=== PATIENT | female | born 2005 | race Asian ===

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

== ENCOUNTER 2024-08-21 13:13 | Emergency (ER) | payer OTHER, SELFPAY ==
[2024-08-21 13:14] VITALS: BP 115/83; PULSE 94; RESP 16; TEMP 36.7; O2SAT 97; BMI 30.9
--- NOTE | 2024-08-21 13:19 | EX.ED.DYSGE1 ---
HPI History of Present Illness Chief Complaint: Allergic Reaction Detail of Chief Complaint: Allergic reaction Informant: patient Narrative Narrative: Patient presents to the emergency department complaint of an allergic reaction. Patient states that she ate a shrimp which she knew she was mildly allergic to. She describes about an hour ago. She complains of redness and swelling to her face. She denies lip or tongue swelling or difficulty breathing. I was called to triage to see the patient as we did not have any rooms available given the volume in the emergency department. PFSH PFSH Home Medications ?Medication ?Instructions ?Recorded ?Last Taken ?Type hydrocodone-acetaminophen 5-325mg 1 tab PO Q6H PRN PRN Pain 3 days 05/05/23 Unknown Rx 5mg-325mg #10 TABLETS epinephrine 0.3 mg/0.3 mL 0.3 mg (0.3 mL) IM Q10M PRN PRN 08/21/24 Unknown Rx injection, auto-injector (EpiPen) anaphylaxis #2 ea prednisone 20 mg tablet 20 mg PO BID #6 tabs 08/21/24 Unknown Rx Allergy/AdvReac Type Severity Reaction Status Date / Time shrimp Allergy Severe Anaphylaxis Verified 08/21/24 13:20 Social History Smoking Status: Never smoker ROS ROS ED Review of Systems ROS Unobtainable: other Constitutional Constitutional ED: Reports lethargy; Denies chills, fever(s), sweats or weight loss Eyes Eyes: Denies blurry vision, change in vision or diplopia ENT ENT ED: Denies rhinorrhea or sore throat Cardiovascular Cardiovascular: Denies chest pain, orthopnea or racing heartbeat Respiratory/Chest Respiratory/Chest: Denies cough, dyspnea, dyspnea on exertion, orthopnea or sputum Gastrointestinal Gastrointestinal: Denies abdominal pain, diarrhea, nausea or vomiting Genitourinary Genitourinary ED: Denies dysuria, hematuria or urinary frequency Musculoskeletal Musculoskeletal: Denies arthralgias, back pain, myalgias or neck pain Integumentary Reports other Details: Facial redness and hives ; Denies abscess, Abrasions or rash Neurologic Neurologic: Denies headache(s) or weakness Psychiatric Psychiatric: Denies anxiety, depression or suicidal thoughts Endocrine Endocrinology: Denies polydipsia, polyphagia or polyuria Hematologic/Lymphatic Hematologic/Lymphatic: Denies easy bleeding, easy bruising or lymphadenopathy Allergic/Immunologic Allergic/Immunologic ED: Denies mouth swelling, tongue swelling or urticaria EXAM Physical Exam Const Vital Signs: 08/21/24 13:14 08/21/24 13:44 08/21/24 14:02 Temperature 98.1 F Temperature Source Temporal Pulse Rate 94 70 69 Respiratory Rate 16 18 18 Blood Pressure 115/83 H 120/87 H 120/87 H Blood Pressure Mean 93 98 98 Pulse Ox 97 98 98 Oxygen Delivery Method Room Air Room Air Room Air Positive well nourished and well developed General Appearance ED: well developed and NAD HEENT Reports TM's clear and moist mucous membranes normocephalic and atraumatic; Negative for trauma or tenderness Tympanic Membrane ED: Yes TM's clear Eyes PERRL and EOMs intact bilaterally Eyes Narrative: Patient with flushing of her face. No angioedema noted of the lips or the tongue or oropharynx. General Eye ED: Negative for pale conjunctiva or scleral icterus Neck no lymphadenopathy, supple and no JVD General: Negative for tenderness Chest Wall inspection of chest normal and palpation of chest normal Chest: Negative for tenderness Resp normal respiratory effort and clear to auscultation bilaterally Effort and Inspection: Negative for respiratory distress or pain with movement Auscultation: Negative for rhonchi, wheezes or diminished lung sounds Cardio regular rate, regular rhythm, S1 normal heart sound, S2 normal heart sound and no murmurs Peripheral Pulses: pulses 2+ throughout GI normal to inspection, nondistended, normoactive bowel sounds, soft to palpation, non-tender, non-distended and no masses Back/Spine no CVA tenderness and no thoracic nor lumbar tenderness Extremity normal to inspection General Extremety ED: Negative for edema General Extremity: Negative for edema Neuro oriented x3, CN's II-XII intact bilaterally, no sensory deficits noted and gait normal Sensorium / Orientation: awake, alert, oriented to person, oriented to place and oriented to time Motor Exam: strength 5/5 throughout and strength abnormal Psych mental status grossly normal Skin no rashes or lesions noted and no wounds Skin Narrative: Patient with urticaria involving her face. MDM MDM MDM Narrative Medical decision making narrative: Patient presents with allergic reaction to shrimp. Patient not having any respiratory difficulty or angioedema at this time. Will establish an IV and will treat with Solu-Medrol as well as Benadryl and Pepcid. Will observe in the emergency department. On repeat examination patient doing well and her urticaria on her face is resolved. She is without complaints. I will advise her to discontinue shellfish. Patient will be ordered an EpiPen. Patient also will be given a prescription for prednisone for 3 days. Vies to return if lip or tongue swelling, trouble breathing, or condition worsening way. Discharge Plan Triage Chief Complaint: Allergic Reaction ED Provider: Cony Bah Dx/Rx/DC Orders Clinical Impression: Allergic reaction to shellfish Instructions: ED General Allergic Reactions Prescriptions: New prednisone 20 mg tablet 20 mg PO BID Qty: 6 0RF epinephrine [EpiPen] 0.3 mg/0.3 mL auto-injector 0.3 mg IM Q10M PRN PRN (Reason: anaphylaxis) Qty: 2 0RF Rx Instructions: for 2 doses No Action hydrocodone-acetaminophen [hydrocodone-acetaminophen] 5-325 mg tablet 1 tab PO Q6H PRN PRN (Reason: Pain) 3 Days Qty: 10 0RF Primary Care Provider: Care Physician,No Primary Referrals: Care Physician,No Primary [Primary Care Provider] - Print Language: Stateless Disposition Disposition: Home, Self Care
[2024-08-21] MEDS: DiphenhydrAMINE 50 MG/ML Syringe IV (13:26)
[2024-08-21] MEDS: MethylPREDNISolone 125 MG/2 ML Vial IV (13:26)
[2024-08-21] MEDS: Famotidine 200 MG/20 ML MDV 20 MG in 0.9% Normal Saline (Pres. free 8 ML 300 MG IV (13:31)
[2024-08-21 13:44] VITALS: BP 120/87; PULSE 70; RESP 18; O2SAT 98
[2024-08-21 14:02] VITALS: BP 120/87; PULSE 69; RESP 18; O2SAT 98
[2024-08-21 15:30] VITALS: BP 120/87; PULSE 69; RESP 18; TEMP 36.7; O2SAT 98
== END 2024-08-21 15:30 | disposition home or self-care (01) ==
PROVIDERS: Emergency Provider Emergency Medicine; Visit Provider Emergency Medicine
DX: L50.0 Allergic urticaria (principal)
CPT/HCPCS: 96365; 96366; 96375; 99285; A4216